=== PATIENT | male | born 1960 | race Caucasian/White ===

== ENCOUNTER → 2017-10-20 | Outpatient (REF) | payer OTHER ==
[2017-10-20 14:26] LABS: FOLATE 18.2 NG/ML
[2017-10-20 14:27] LABS: VITAMIN B12 LEVEL 495 PG/ML
[2017-10-20 14:37] LABS: IRON (FE) 82 UG/DL (65-175); PERCENT SATURATION 25.1 % (19.7-50.0); TOTAL IRON BINDING CAPACITY 327 UG/DL (250-450)
== END ==
LOC: M LAB REF 12:53
DX: Z98.84 Bariatric surgery status (principal)

== ENCOUNTER → 2018-01-19 | Outpatient (CLI) | payer OTHER ==
[2018-01-19 12:51] LABS: BASO % 0.5 % (0.0-1.0); EOS % 1.2 % (0.0-3.0); HEMATOCRIT 36.9 % (42.0-52.0); HEMOGLOBIN 13.2 g/dl (13.5-17.5); IMMATURE GRANULOCYTE % 0.4 % (0-3.0); LYMPH % 18.6 % (24.0-44.0); MEAN CORPUSCULAR HEMOGLOBIN 32.8 pg (27.0-33.0); MEAN CORPUSCULAR HGB CONC 35.8 g/dl (32.0-36.5); MEAN CORPUSCULAR VOLUME 91.8 fl (80.0-96.0); MONO % 5.4 % (0.0-5.0); NEUTROPHILS # 6.8 10^3/uL (1.8-7.7); NEUTROPHILS % 73.9 % (36.0-66.0); PLATELET COUNT, AUTOMATED 282 10^3/uL (150-450); RED BLOOD COUNT 4.02 10^6/uL (4.30-6.10); RED CELL DISTRIBUTION WIDTH 13.2 % (11.5-14.5); WHITE BLOOD COUNT 9.2 10^3/uL (4.0-10.0)
[2018-01-19 12:52] LABS: BASO # 0.1 10^3/uL (0.0-0.2); EOS # 0.1 10^3/uL (0.0-0.50); LYMPH # 1.7 10^3/uL (1.5-4.5); MONO # 0.5 10^3/uL (0.0-0.8)
[2018-01-19 13:19] LABS: ALBUMIN 4.1 GM/DL (3.2-5.2); ALBUMIN/GLOBULIN RATIO 1.21 (1.00-1.93); ALKALINE PHOSPHATASE 80 U/L (45-117); ALT/SGPT 24 U/L (12-78); ANION GAP 10 MEQ/L (8-16); AST/SGOT 12 U/L (7-37); BILIRUBIN,TOTAL 0.5 MG/DL (0.2-1.0); BLOOD UREA NITROGEN 19 MG/DL (7-18); CALCIUM LEVEL 8.9 MG/DL (8.5-10.1); CARBON DIOXIDE LEVEL 23 MEQ/L (21-32); CHLORIDE LEVEL 108 MEQ/L (98-107); CREATININE FOR GFR 1.17 MG/DL (0.70-1.30); GLOMERULAR FILTRATION RATE > 60.0 (>56); GLUCOSE, FASTING 118 MG/DL (70-100); POTASSIUM SERUM 4.6 MEQ/L (3.5-5.1); SODIUM LEVEL 141 MEQ/L (136-145); TOTAL PROTEIN 7.5 GM/DL (6.4-8.2)
== END ==
LOC: M WUC 08:42
DX: R22.42 Localized swelling, mass and lump, left lower limb (principal)
CPT/HCPCS: 80053

== ENCOUNTER 2018-06-01 10:13 | Emergency (ER) | payer OTHER ==
[~2018-06-01] VITALS: Ht 188 cm; Wt 92.3 kg
[2018-06-01] MEDS ORDERED: ESOM40CA35 PO (10:32)
[2018-06-01] MEDS ORDERED: ASPI1TAB20 PO (10:32)
[2018-06-01] MEDS ORDERED: POTA1TAB23 PO (10:32)
[2018-06-01] MEDS ORDERED: ATOR40TA75 PO (10:32)
[2018-06-01] MEDS ORDERED: FURO40TA2 PO (10:32)
[2018-06-01] MEDS ORDERED: CARV3.12 PO (10:32)
[2018-06-01] MEDS ORDERED: PROC1CRE5 (10:32)
[2018-06-01] MEDS ORDERED: RAMI1CAP26 PO (10:32)
--- NOTE | 2018-06-01 11:10 | REP ---
Right knee series: Six views. History: Trauma. Findings: There is a comminuted displaced or diastatic fracture of the patella. The comminution involves the inferior pole fragment. The fracture is principally in a horizontal or axial plane. The redundant quadriceps tendon is seen above the retracted upper pole component. No femoral or tibial or fibular fracture is seen. Vascular calcification is noted. Impression: Transversely oriented displaced and comminuted patellar fracture. Electronically Signed by Josef De Jesus MD 06/01/2018 11:02 A
[2018-06-01] MEDS ORDERED: HYDR-3715 PO (12:21)
[2018-06-01] MEDS ORDERED: BACI500O8 TOP (12:22)
--- NOTE | 2018-06-01 12:46 | REP ---
CT right knee without contrast: History: Trauma. Comparison is made with today's radiograph showing a comminuted diastatic transverse patellar fracture. Technique: Helical scanning is acquired and 2 mm axial images are generated. Coronal and sagittal multiplanar re-formation images are generated and reviewed. 3-D surface rendered images are generated and reviewed rotational a. CT findings: CT study confirms the presence of a severely comminuted patellar fracture involving the lower half of the patella. The upper patellar fragment appears essentially intact. A redundant patellar tendon is seen below the lower pole fragment. The patellar fracture fragments are displaced with the distal fragments displaced anteriorly and distally compared to the proximal fragment. There is nonarticular spurring at the upper pole the patella at the quadriceps tendon insertion. No femoral or tibial fracture is seen. The proximal fibula appears intact. Vascular calcification is noted in the arteries of the distal thigh and proximal calf. A small joint effusion is seen and there is peripatellar soft tissue swelling. Impression: Displaced patellar fracture with severe comminution in the lower pole fragments. No other fracture seen. Electronically Signed by Josef De Jesus MD 06/01/2018 12:37 P
[2018-06-01 13:22] VITALS: BP 110/58
[2018-06-04] MEDS ORDERED: CITRTAB13 PO (13:20)
[2018-06-04] MEDS ORDERED: MULTCAP PO (13:20)
[2018-06-04] MEDS ORDERED: STOO100C PO (13:20)
[2018-06-04] MEDS ORDERED: D200CAP2 PO (13:20)
[2018-06-04] MEDS ORDERED: NITR4TASL SL (13:20)
== END 2018-06-01 13:25 | disposition home or self-care (01) ==
LOC: M ED 10:13
DX: S82.031A Displaced transverse fracture of right patella, initial encounter for closed fracture (principal); W17.89XA Other fall from one level to another, initial encounter; Y92.59 Other trade areas as the place of occurrence of the external cause; Y99.0 Civilian activity done for income or pay; I10 Essential (primary) hypertension; Z95.1 Presence of aortocoronary bypass graft; Z79.899 Other long term (current) drug therapy; Z79.82 Long term (current) use of aspirin

== ENCOUNTER 2018-06-05 09:08 | Day surgery (SDC) | payer OTHER ==
[~2018-06-05] VITALS: Ht 188 cm; Wt 146.5 kg
[~2018-06-05 09:08] MED LIST: ASPI1TAB20 PO; ATOR40TA75 PO; BACI500O8 TOP; CARV3.12 PO; CITRTAB13 PO; D200CAP2 PO; ESOM40CA35 PO; FURO40TA2 PO; HYDR-3715 PO; MULTCAP PO; NITR4TASL SL; POTA1TAB23 PO; PROC1CRE5; RAMI1CAP26 PO; STOO100C PO
[2018-06-05] MEDS ORDERED: LR 1,000 ML IV ONE (09:30)
[2018-06-05] MEDS ORDERED: MIDAZOLAM INJ 2 MG/2 ML VIAL (J2250) As Ordered ONE (09:36)
[2018-06-05] MEDS ORDERED: fentaNYL 100 MCG/2 ML INJECTION (J3010) As Ordered ONE ×3 (09:36→12:40)
[2018-06-05] MEDS ORDERED: PROPOFOL 200 MG/20 ML VIAL As Ordered ONE (09:48)
[2018-06-05] MEDS ORDERED: METOCLOPRAMIDE INJ 10MG/2ML VIAL (J2765) As Ordered ONE (09:48)
[2018-06-05] MEDS ORDERED: LIDOCAINE 2% INJ 100 MG/5 ML SDV (FOR ANES.) As Ordered ONE (09:48)
[2018-06-05] MEDS ORDERED: ONDANSETRON 4MG/2ML VIAL (J2405) As Ordered ONE (09:48)
[2018-06-05] MEDS ORDERED: ROCURONIUM BROMIDE 50 MG/5 ML VIAL As Ordered ONE (09:48)
[2018-06-05] MEDS ORDERED: CARVedilol 3.125 MG TAB As Ordered ONE (10:01)
[2018-06-05] MEDS ORDERED: ceFAZolin 1GM INJ (J0690 PER 500MG) As Ordered ONE (10:07)
[2018-06-05 10:10] VITALS: BP 127/70
[2018-06-05] MEDS ORDERED: ceFAZolin SOD 1 GM in D5W MINI-BAG PLUS 50 ML IV ONE (10:10)
[2018-06-05] MEDS ORDERED: MIDAZOLAM INJ 2 MG/2 ML VIAL (J2250) IV ONE (10:45)
[2018-06-05] MEDS ORDERED: CARVedilol 3.125 MG TAB PO ONE (10:45)
[2018-06-05] MEDS ORDERED: fentaNYL 100 MCG/2 ML INJECTION (J3010) IV ONE (10:45)
[2018-06-05] MEDS ORDERED: HYDROmorphone HCL 2 MG/ML 1ML VIAL (J1170) As Ordered ONE (13:32)
--- NOTE | 2018-06-05 14:40 | REP ---
Right knee intraoperative views: A series of 21 and a fluoroscopic intraoperative views are performed during internal fixation of a patellar fracture. The final films demonstrate the patellar fracture is satisfactorily reduced with K-wire and cerclage wire fixation. Fluoroscopic exposure time is 1 minute 34 seconds. Fluoroscopic images are performed with last image hold technology. These images require no additional radiation. Electronically Signed by Jeffry Obrien MD 06/05/2018 02:32 P
[2018-06-05] MEDS ORDERED: KETOROLAC 60 MG/2 ML VIAL (J1885) As Ordered ONE (15:04)
[2018-06-05] MEDS ORDERED: dexameTHASONE 4 MG/ML 1ML VIAL (J1100) As Ordered ONE (15:04)
[2018-06-05] MEDS ORDERED: PERCOCET 5MG/325MG TAB PO PRN (15:15)
[2018-06-05] MEDS ORDERED: METOCLOPRAMIDE INJ 10MG/2ML VIAL (J2765) IV PRN (15:15)
[2018-06-05] MEDS ORDERED: fentaNYL 100 MCG/2 ML INJECTION (J3010) IV PRN (15:15)
[2018-06-05] MEDS ORDERED: ONDANSETRON 4MG/2ML VIAL (J2405) IV PRN (15:15)
[2018-06-05] MEDS ORDERED: LR 1,000 ML IV SCH ×2 (15:15)
[2018-06-05 19:00] VITALS: BP 118/57
== END 2018-06-05 19:00 | disposition home or self-care (01) ==
LOC: M SDC 09:08
PROVIDERS: ATTEND Orthopaedic Surgery
DX: S82.041A Displaced comminuted fracture of right patella, initial encounter for closed fracture (principal); X58.XXXA Exposure to other specified factors, initial encounter; Y92.89 Other specified places as the place of occurrence of the external cause; Y93.9 Activity, unspecified; Y99.9 Unspecified external cause status; I25.10 Atherosclerotic heart disease of native coronary artery without angina pectoris; Z95.1 Presence of aortocoronary bypass graft; E78.00 Pure hypercholesterolemia, unspecified; E66.9 Obesity, unspecified; R60.0 Localized edema; Z79.82 Long term (current) use of aspirin; Z79.899 Other long term (current) drug therapy; Z87.891 Personal history of nicotine dependence; Z98.84 Bariatric surgery status
CPT/HCPCS: 27524; 64447; 73564; 88300; C1713; J0690; J1100; J1170; J1885; J2250; J2405; J2765; J3010

== ENCOUNTER → 2018-11-23 | Outpatient (REF) | payer OTHER ==
[~2018-11-23] MED LIST changes: -ASPI1TAB20 PO; +ASPI325T57 PO; +MM S100C PO; -STOO100C PO
[2018-11-23 14:08] LABS: PERCENT SATURATION 22.4 % (19.7-50.0)
[2018-11-23 14:32] LABS: FOLATE 19.9 NG/ML
== END ==
LOC: M LAB REF 12:02
PROVIDERS: ATTEND Internal Medicine
DX: Z98.84 Bariatric surgery status (principal)

== ENCOUNTER → 2019-05-24 | Outpatient (REF) | payer OTHER ==
[~2019-05-24] MED LIST changes: -CITRTAB13 PO; +CITRTAB16 PO
[2019-05-24 13:20] LABS: PERCENT SATURATION 24.6 % (19.7-50.0)
== END ==
LOC: M LAB REF 12:28
PROVIDERS: ATTEND Internal Medicine
DX: Z79.84 Long term (current) use of oral hypoglycemic drugs (principal)

== ENCOUNTER 2019-08-29 07:48 | Emergency (ER) | payer OTHER ==
[~2019-08-29] VITALS: Ht 188 cm; Wt 135.4 kg
[2019-08-29 08:58] LABS: BASO # 0.1 10^3/uL (0.0-0.2); BASO % 0.8 % (0.0-1.0); EOS # 0.1 10^3/uL (0.0-0.5); HEMATOCRIT 41.4 % (42.0-52.0); HEMOGLOBIN 13.7 g/dl (13.5-17.5); LYMPH # 1.6 10^3/uL (1.5-5.0); LYMPH % 20.4 % (24.0-44.0); MEAN CORPUSCULAR HEMOGLOBIN 28.9 pg (27.0-33.0); MEAN CORPUSCULAR HGB CONC 33.1 g/dl (32.0-36.5); MEAN CORPUSCULAR VOLUME 87.3 fl (80.0-96.0); MONO # 0.5 10^3/uL (0.0-0.8); MONO % 6.2 % (0.0-5.0); NEUTROPHILS # 5.6 10^3/uL (1.5-8.5); NEUTROPHILS % 71.3 % (36.0-66.0); PLATELET COUNT, AUTOMATED 228 10^3/uL (150-450); RED BLOOD COUNT 4.74 10^6/uL (4.30-6.10); WHITE BLOOD COUNT 7.8 10^3/uL (4.0-10.0)
--- NOTE | 2019-08-29 09:19 | REP ---
ABDOMEN SERIES: Three views. HISTORY: Epigastric pain. Postprandial. History gastric bypass. Comparison chest x-ray: July 12, 2006. FINDINGS: Upright chest radiograph shows prior median sternotomy wires and mediastinal clips as before. Heart is not enlarged. Pleural angles are sharp. No free subdiaphragmatic air or infiltrate is seen. Supine and erect views of the abdomen demonstrate a normal bowel gas pattern. There is are clips and sutures in the left upper and left mid abdomen. Psoas margins are intact. No mass organomegaly is seen. IMPRESSION: Unremarkable bowel gas pattern. Postoperative clips and sutures. Prior sternotomy. No infiltrate. Electronically Signed by Josef De Jesus MD 08/29/2019 09:20 A
[2019-08-29 09:26] LABS: ALBUMIN 3.9 GM/DL (3.2-5.2); ALT/SGPT 25 U/L (12-78); AMYLASE 46 U/L (25-115); BILIRUBIN,DIRECT 0.1 MG/DL (0.0-0.2); BILIRUBIN,TOTAL 0.5 MG/DL (0.2-1.0); BLOOD UREA NITROGEN 17 MG/DL (7-18); CALCIUM LEVEL 9.1 MG/DL (8.5-10.1); CARBON DIOXIDE LEVEL 25 MEQ/L (21-32); CHLORIDE LEVEL 109 MEQ/L (98-107); GLOMERULAR FILTRATION RATE > 60.0 (>56); GLUCOSE, FASTING 108 MG/DL (70-100); LIPASE 115 U/L (73-393); POTASSIUM SERUM 4.5 MEQ/L (3.5-5.1); SODIUM LEVEL 140 MEQ/L (136-145); TOTAL PROTEIN 7.4 GM/DL (6.4-8.2)
[2019-08-29] MEDS ORDERED: CARA1TAB6 PO (09:34)
[2019-08-29 09:42] VITALS: BP 127/75
== END 2019-08-29 09:43 | disposition home or self-care (01) ==
LOC: M ED 07:48
DX: R10.13 Epigastric pain (principal); I10 Essential (primary) hypertension; E78.5 Hyperlipidemia, unspecified; K21.9 Gastro-esophageal reflux disease without esophagitis; I25.10 Atherosclerotic heart disease of native coronary artery without angina pectoris; Z98.84 Bariatric surgery status; Z79.899 Other long term (current) drug therapy; Z79.82 Long term (current) use of aspirin

== ENCOUNTER 2020-01-15 15:30 | Emergency (ER) | payer OTHER ==
[~2020-01-15] VITALS: Ht 185.4 cm; Wt 138.5 kg
[~2020-01-15 15:30] MED LIST changes: +CARA1TAB6 PO
[2020-01-15] MEDS ORDERED: LIDOCAINE 4% CREAM 5GM (LMX4) TOP ONE (17:30)
--- NOTE | 2020-01-15 17:42 | REP ---
INDICATION: knee swelling, hardware check COMPARISON: Pre operative exam 06/01/2018 TECHNIQUE: Four views FINDINGS: There is a surgical wire encircling the patella which has been previously fixed with 2 K-wires. Four discrete fracture zones are seen in the surgical wire. The fractured patella has healed. There is no evidence of an acute fracture. There is patellofemoral joint space narrowing. The medial and lateral compartments are symmetric and well maintained. There is evidence of prepatellar soft tissue swelling, however, that could be secondary to cicatrix formation. This would need to be correlated clinically. IMPRESSION: Findings as described above. <Electronically signed by Jerome Gonzalez > 01/15/20 [id number]
[2020-01-15 18:01] LABS: BASO # 0.1 10^3/uL (0.0-0.2); BASO % 0.4 % (0.0-1.0); EOS % 0.3 % (0.0-3.0); HEMATOCRIT 41.6 % (42.0-52.0); HEMOGLOBIN 13.9 g/dl (13.5-17.5); LYMPH # 1.4 10^3/uL (1.5-5.0); LYMPH % 11.3 % (24.0-44.0); MEAN CORPUSCULAR HEMOGLOBIN 29.3 pg (27.0-33.0); MEAN CORPUSCULAR HGB CONC 33.4 g/dl (32.0-36.5); MEAN CORPUSCULAR VOLUME 87.8 fl (80.0-96.0); MONO # 0.8 10^3/uL (0.0-0.8); MONO % 6.8 % (0.0-5.0); NEUTROPHILS # 9.8 10^3/uL (1.5-8.5); NEUTROPHILS % 80.8 % (36.0-66.0); PLATELET COUNT, AUTOMATED 236 10^3/uL (150-450); RED BLOOD COUNT 4.74 10^6/uL (4.30-6.10); WHITE BLOOD COUNT 12.1 10^3/uL (4.0-10.0)
[2020-01-15 18:27] LABS: BLOOD UREA NITROGEN 14 MG/DL (7-18); C REACTIVE PROTEIN QUANTITATIV 2.69 MG/DL (0.00-0.30); CALCIUM LEVEL 9.1 MG/DL (8.5-10.1); CARBON DIOXIDE LEVEL 23 MEQ/L (21-32); CHLORIDE LEVEL 107 MEQ/L (98-107); GLOMERULAR FILTRATION RATE > 60.0 (>56); GLUCOSE, FASTING 116 MG/DL (70-100); POTASSIUM SERUM 4.3 MEQ/L (3.5-5.1); SODIUM LEVEL 137 MEQ/L (136-145)
[2020-01-15 18:37] LABS: ERYTHROCYTE SEDIMENTATION RATE 34 mm/hr (0-20)
[2020-01-15] MEDS ORDERED: LIDOCAINE 1% MDV 20ML VIAL SC ONE (19:45)
[2020-01-15 21:00] LABS: SOURCE, BODY FLUID RT KNEE
[2020-01-15 21:01] LABS: SYNOVIAL FLUID COLOR RED (YELLOW)
[2020-01-15 21:27] LABS: HEMOGLOBIN A1c 6.2 %
[2020-01-15] MEDS ORDERED: NS 1,000 ML IV ONE (22:45)
[2020-01-16] MEDS ORDERED: VANCOMYCIN HCL 2,000 MG in IV FLUID PLACE HOLDER 1 EA IV ONE (01:00)
[2020-01-16] MEDS ORDERED: VANCOMYCIN HCL 1,000 MG, VIAL MATE ADAPTER 1 EACH in D5W 250 ML IV ONE ×2 (01:15→02:15)
[2020-01-16 03:32] VITALS: BP 122/74
--- NOTE | 2020-01-16 18:45 | REP ---
INDICATION: left #2 finger infection, r/o bone degradation COMPARISON: None. TECHNIQUE: Four views left hand performed. FINDINGS: There is no evidence of acute fracture, dislocation, or intrinsic bone disease.There is mild soft tissue swelling of the 2nd digit. IMPRESSION: No fracture or dislocation. No osseous destruction. Mild soft tissue swelling 2nd digit. Preliminary report provided by [facility] at the time of the exam. <Electronically signed by Jeffry Talamantes > 01/16/20 [id number]
== END 2020-01-16 03:33 | disposition home or self-care (01) ==
LOC: M ED 15:30
DX: M70.41 Prepatellar bursitis, right knee (principal); L08.9 Local infection of the skin and subcutaneous tissue, unspecified; I10 Essential (primary) hypertension; E78.5 Hyperlipidemia, unspecified; I25.2 Old myocardial infarction; Z95.1 Presence of aortocoronary bypass graft; Z98.84 Bariatric surgery status; Z79.899 Other long term (current) drug therapy; Z79.82 Long term (current) use of aspirin
CPT/HCPCS: 10060; 73130; 73564; 80048; 83036; 85025; 85652; 86140; 87040; 87070; 87077; 87186; 89051; 96361; 96365; 96366; 99284; J3370

== ENCOUNTER → 2020-12-02 | Outpatient (REF) | payer OTHER ==
[2020-12-02 13:32] LABS: FOLATE > 24.0 NG/ML; VITAMIN B12 LEVEL 1495 PG/ML
== END ==
LOC: M LAB REF 12:16
PROVIDERS: ATTEND Internal Medicine
DX: Z79.84 Long term (current) use of oral hypoglycemic drugs (principal)

== ENCOUNTER → 2022-01-19 | Outpatient (REF) | payer OTHER ==
[~2022-01-19] MED LIST changes: +CITRACAL MAXIMU1 TAB PO; -CITRTAB16 PO
[2022-01-19 17:01] LABS: IRON (FE) 61 UG/DL (65-175); PERCENT SATURATION 17.8 % (19.7-50.0); TOTAL IRON BINDING CAPACITY 343 UG/DL (250-425); VITAMIN B12 LEVEL 831 PG/ML (211-911)
[2022-01-19 17:22] LABS: FOLATE > 24.0 NG/ML (>5.4)
== END ==
LOC: M LAB REF 12:37
PROVIDERS: ATTEND Internal Medicine
DX: Z98.84 Bariatric surgery status (principal)

== ENCOUNTER 2022-11-29 11:55 | Emergency (ER) | payer OTHER ==
[~2022-11-29] VITALS: Ht 188 cm; Wt 121.1 kg
[2022-11-29] MEDS ORDERED: SEMA1PEN2 SQ (12:12)
[2022-11-29] MEDS ORDERED: EZET10TA21 PO (12:12)
[2022-11-29] MEDS ORDERED: JARD1TAB PO (12:12)
[2022-11-29 14:24] LABS: HEMATOCRIT 42.4 % (42.0-52.0); HEMOGLOBIN 14.5 g/dl (13.5-17.5); MEAN CORPUSCULAR HEMOGLOBIN 29.4 pg (27.0-33.0); MEAN CORPUSCULAR HGB CONC 34.2 g/dl (32.0-36.5); PLATELET COUNT, AUTOMATED 263 10^3/uL (150-450); RED BLOOD COUNT 4.93 10^6/uL (4.30-6.10); WHITE BLOOD COUNT 6.2 10^3/uL (4.0-10.0)
[2022-11-29 14:45] LABS: ATYPICAL LYMPH 17 % (0-5); BASOPHILS 2 % (0-1); EOSINOPHILS 1 % (0-3); LYMPHOCYTES 16 % (16-44); MONOCYTES 11 % (0-5); NEUTROPHILS 53 % (28-66); PLATELET ESTIMATE NORMAL (NORMAL)
[2022-11-29 14:55] LABS: ALBUMIN 3.9 G/DL (3.2-5.2); BILIRUBIN,DIRECT 0.1 MG/DL (<0.4); BILIRUBIN,TOTAL 0.5 MG/DL (0.3-1.2); CALCIUM LEVEL 9.1 MG/DL (8.3-10.6); CK-MB VALUE MASS 1.2 NG/ML (<3.6); CREATININE FOR GFR 1.9 MG/DL (0.70-1.30); GLOMERULAR FILTRATION RATE 38.7 (>49); POTASSIUM SERUM 3.9 MMOL/L (3.5-5.1); TOTAL PROTEIN 7.1 G/DL (5.7-8.2)
[2022-11-29 14:57] LABS: THYROID STIMULATING HORMONE 1.776 uIU/ML (0.55-4.78)
[2022-11-29 14:59] LABS: MB/CK RELATIVE INDEX 1.2 (< OR =4)
[2022-11-29] MEDS ORDERED: NS 500 ML IV ONE (19:40)
[2022-11-29 20:24] VITALS: BP 110/60; TEMP 97.4; O2SAT 97
== END 2022-11-29 20:59 | disposition home or self-care (01) ==
LOC: M ED 11:55
DX: E86.0 Dehydration (principal); A04.5 Campylobacter enteritis; I10 Essential (primary) hypertension; I25.2 Old myocardial infarction; E78.5 Hyperlipidemia, unspecified; K21.9 Gastro-esophageal reflux disease without esophagitis; Z98.84 Bariatric surgery status; Z79.899 Other long term (current) drug therapy; Z79.82 Long term (current) use of aspirin

== ENCOUNTER → 2023-05-30 | Outpatient (REF) | payer OTHER ==
[~2023-05-30] MED LIST changes: +EZET10TA21 PO; +JARD1TAB PO; +SEMA1PEN2 SQ
[2023-05-30 14:10] LABS: FOLATE 23.9 NG/ML (>5.4)
== END ==
LOC: M LAB REF 12:04
PROVIDERS: ATTEND Internal Medicine
DX: Z98.84 Bariatric surgery status (principal)

== ENCOUNTER → 2023-07-07 | Outpatient (REF) | payer OTHER ==
[~2023-07-07] MED LIST changes: +RAMI10CA64 PO; -RAMI1CAP26 PO
== END ==
LOC: M LAB REF 16:33
PROVIDERS: ATTEND Internal Medicine
DX: Z11.59 Encounter for screening for other viral diseases (principal)

== ENCOUNTER → 2023-08-04 | Outpatient (CLI) | payer OTHER | LOC: M RAD 07:29 | PROVIDERS: ATTEND Internal Medicine | DX: R10.13 Epigastric pain (principal) ==

== ENCOUNTER → 2024-01-17 | Outpatient (REF) | payer OTHER ==
[2024-01-17 13:39] LABS: IRON (FE) 144 UG/DL (65-175); PERCENT SATURATION 49.3 % (19.7-50.0); PHOSPHORUS LEVEL 3.9 MG/DL (2.4-5.1); TOTAL IRON BINDING CAPACITY 292 UG/DL (250-425)
[2024-01-17 13:41] LABS: FERRITIN 84.5 NG/ML (10.5-307.3); TOTAL 25(OH) VITAMIN D 44.5 NG/ML (20.0-100.0)
[2024-01-17 13:42] LABS: FOLATE > 24.0 NG/ML (>5.4); VITAMIN B12 LEVEL 704 PG/ML (211-911)
[2024-01-17 17:40] LABS: HEPATITIS C VIRUS ABY INDEX 0.02 INDEX (<0.8)
[2024-01-17 17:46] LABS: HEPATITIS B SURFACE ANTIGEN NEGATIVE (NEGATIVE)
== END ==
LOC: M LAB REF 12:53
PROVIDERS: ATTEND Internal Medicine
DX: Z98.84 Bariatric surgery status (principal); K74.00 Hepatic fibrosis, unspecified

== ENCOUNTER → 2024-03-11 | Outpatient (CLI) | payer OTHER ==
[~2024-03-11] MED LIST changes: +ATOR80TA59 PO; +CITRTAB18 PO; +ECOT81TA5 PO; +MULTTAB61 PO; +VITA100093 PO
== END ==
LOC: M RAD 06:42
PROVIDERS: ATTEND Internal Medicine
DX: K74.00 Hepatic fibrosis, unspecified (principal); R16.0 Hepatomegaly, not elsewhere classified

== ENCOUNTER 2024-03-25 08:31 | Day surgery (SDC) | payer OTHER ==
[~2024-03-25] VITALS: Ht 190.5 cm; Wt 122.8 kg
[2024-03-25] MEDS ORDERED: propofoL 200 MG/20 ML VIAL As Ordered ONE (10:31)
[2024-03-25 10:51] VITALS: TEMP 97.5
[2024-03-25 11:02] VITALS: BP 122/76; O2SAT 96
== END 2024-03-25 11:09 | disposition home or self-care (01) ==
LOC: M OPP 08:31
PROVIDERS: ATTEND Internal Medicine Gastroenterology
DX: Z12.11 Encounter for screening for malignant neoplasm of colon (principal); K57.30 Diverticulosis of large intestine without perforation or abscess without bleeding; K64.0 First degree hemorrhoids

== ENCOUNTER → 2024-06-28 | Outpatient (CLI) | payer OTHER | LOC: M PLAIMG 07:24 | PROVIDERS: ATTEND Physician Assistant | DX: I77.810 Thoracic aortic ectasia (principal); I36.1 Nonrheumatic tricuspid (valve) insufficiency ==

== ENCOUNTER → 2024-09-20 | Outpatient (REF) | payer OTHER | LOC: M LAB REF 13:08 | PROVIDERS: ATTEND Internal Medicine | DX: K75.81 Nonalcoholic steatohepatitis (NASH) (principal) ==

== ENCOUNTER → 2024-10-25 | Outpatient (CLI) | payer OTHER | LOC: M RAD 06:19 | PROVIDERS: ATTEND Internal Medicine | DX: K74.00 Hepatic fibrosis, unspecified (principal); R93.2 Abnormal findings on diagnostic imaging of liver and biliary tract; R93.3 Abnormal findings on diagnostic imaging of other parts of digestive tract ==